=== PATIENT | male | born 1950 | race Caucasian/White ===

== ENCOUNTER 2022-02-04 00:51 | Day surgery (SDC) | payer MEDICARE, OTHER, SELFPAY ==
--- NOTE | 2022-02-01 07:22 | PM.HPGS ---
History of Present Illness History of Present Illness Consent: Risks, benefits, and alternatives have been discussed and questions answered. Patient agrees to proceed with procedure. Chief complaint: BPH Narrative: Mohan James is a 71 year old male who has been a patient in our practice since February 2021. He has longstanding outlet obstructive voiding symptoms that it started to progress despite medical management with tamsulosin. He is also troubled by the side effects of tamsulosin (retrograde ejaculation) and is intolerant of daily sildenafil and tadalafil because of facial flushing. Urodynamics show an obstructed flow pattern. Cystoscopy shows lateral lobe enlargement without a significant median lobe. Transrectal ultrasonography shows a prostate volume of 35.4 cc. We discussed surgical options including TURP, GreenLight laser therapy, Rezum an Urolift. He has elected for the latter. He is aware of the risk including, but not limited to, adverse cardiopulmonary events, postoperative bleeding, persistent irritable and or obstructive voiding symptoms, retrograde ejaculation. Meds Home Medications and Allergies Allergies Allergy/AdvReac Type Severity Reaction Status Date / Time No Known Allergies Allergy Unknown Verified 12/30/09 09:50 Exam Const: General: no acute distress Resp: Effort & Inspection: normal respiratory effort GI: Inspection: non-distended GI Palp: No abdominal tenderness and No Guarding due to palpation present (GI) Auscultation: normal bowel sounds Assessment and Plan Assessment and plan (1) BPH loc w urin obs/LUTS: Code(s): N40.1 - Benign prostatic hyperplasia with lower urinary tract symptoms Status: Acute
[2022-02-02 10:07] VITALS: BMI 34.7
--- NOTE | 2022-02-02 10:12 | PC.NURSE ---
Report to the Outpatient Waiting Room, entrance under the green pavilion located off [facility], at time ___0630____ on date __02/04/22 . OR Time: __30 . Time changes happen often and if your time is changed the preop area will call you the afternoon before. - You and your visitor will be asked to self-screen and do not enter if you have any COVID symptoms. - Only one visitor and NO children visitors are allowed at this time. - The patient visitor is requested to leave or wait in car when not with patient due to restrictions. - A mask is required within the hospital. Patients may have clear liquids (water, carbonated beverages, clear teas, apple juice) until 3 hours prior to surgery (0530 AM) with a maximum of 20 ounces. - No food from midnight until time of surgery - Infants may have breast milk until 4 hours before surgery, formula 6 hours prior to surgery. - Children will be allowed to drink immediately following surgery. If applicable, please bring a bottle or sippy cup to assist with drinking. Juice, water, soda, and popsicles are readily available. For infants on formula, please bring formula the day of surgery. Pacifiers are allowed. Take the following medications with a SIP of water the morning of surgery: _AMLODIPINE,GABAPENTIN, METOPROLOL_ Medications to discontinue per physician _STATES STOPPING COUMADIN 01/30/22 & ASPIRIN 01/28/22_ Date to take last dose Please no make-up, nail iranian, hairspray, perfume, deodorant, or body powder the day of surgery. No jewelry (including any body piercings) or valuables the day of surgery, leave them at home. Please take a shower or bath the night before, or the morning of, surgery with an antibacterial soap. Wear comfortable, loose fitting clothing. Children are encouraged to wear pajamas. - Jewelry must be removed prior to entering the operating room. Rings and piercings that are not removed may be cut off. - The hospital will not accept responsibility for valuables. - Please leave all valuables, including medications, at home the day of surgery. If you are going home after surgery, a licensed passenger coach driver must drive you home. - NO public transportation without another adult. - We recommend that an adult stay with you for 24 hours following discharge. - We also recommend that you do not drive, make important decision, drink alcoholic beverages, or take any drugs that were not prescribed by your health care provider for at least 24 hours after your discharge time. For Pediatric surgeries, we recommend two adults accompany the child home (only one inside the building at this time). Follow any additional instructions given to you from your surgeon. If you or anyone in your household have experienced Covid symptoms in the past week, please notify your surgeon or the nurse liaison at the phone number below for possible testing. Telephone instructions given to ___PT and asked if any additional questions and then verbalized understanding. Patient advised to call surgeon office or pre surgery nurse liaison [phone] if any additional questions.
--- NOTE | 2022-02-04 06:07 | ECG_ITS ---
Measurements Intervals [place] Rate: 59 P: 63 PA: 274 QRS: -52 QRSD: 137 T: 52 QT: 431 QTc: 430 Interpretive Statements SINUS BRADYCARDIA WITH FIRST DEGREE AV BLOCK LEFT AXIS DEVIATION INTRAVENTRICULAR CONDUCTION DELAY ABNORMAL ECG NO PREVIOUS ECG AVAILABLE FOR COMPARISON Electronically Signed On 02-04-2022 8:58:53 CDT by Arnel Vinson D.O.
[2022-02-04] MEDS: LACTATED RINGERS 1,000 ML 30 ML IV CONT (07:00)
--- NOTE | 2022-02-04 07:03 | WPDHPUPDATE1 ---
History and Physical Update Update Date/Time: 02/04/22 07:03 History and Physical has been reviewed, including an updated exam of the patient. There are NO changes in the patient's condition. Risks, benefits, and alternatives have been discussed and questions answered. Patient agrees to proceed with procedure.
[2022-02-04 07:10] LABS: Glucose Point of Care 95 mg/dl (65-105)
[2022-02-04 07:15] LABS: Sodium 128 mmol/L (137-145)
[2022-02-04 07:37] VITALS: BP 150/77; PULSE 62; RESP 20; TEMP 36.9; O2SAT 97
--- NOTE | 2022-02-04 07:41 | WPDANESEPPF ---
Anes - Initial Pre Proc Eval Procedure: Operation Date: 02/04/22 08:30 Proposed Procedures p Urolift - Nils Anderson MD Date/Time: 02/04/22 07:41 Surgeon: Nils Anderson MD Pre Op Diagnosis: BPH Patient Data Age: 71 Gender: M Height: 1.82 m Weight: 115.5 kg Last Vital Signs Temp 36.9 C 02/04/22 07:37 Pulse 62 02/04/22 07:37 Resp 20 02/04/22 07:37 BP 150/77 H 02/04/22 07:37 Pulse Ox 97 02/04/22 07:37 O2 Del Method Room Air 02/04/22 07:37 Allergies Allergy/AdvReac Type Severity Reaction Status Date / Time No Known Allergies Allergy Unknown Verified 02/02/22 09:26 Home Medications Medication Instructions Recorded Confirmed Type amlodipine 5 mg tablet 5 mg QAM 02/02/22 02/04/22 History aspirin 81 mg tablet,delayed 81 mg PO QAM 02/02/22 02/02/22 History release cetirizine 10 mg tablet 10 mg HS 02/02/22 02/04/22 History cholecalciferol (vitamin D3) 50 50 mcg PO QAM 02/02/22 02/04/22 History mcg (2,000 unit) capsule coenzyme Q10 100 mg capsule 200 mg PO QAM 02/02/22 02/04/22 History (CoQ-10) cyanocobalamin (vitamin B-12) 1,000 mcg PO QAM 02/02/22 02/04/22 History 1,000 mcg capsule docusate sodium 100 mg capsule 100 mg PO BID 02/02/22 02/04/22 History (Dulcolax Stool Softener (docusate)) dulaglutide 1.5 mg/0.5 mL 1.5 mg subcut WEEKLY 02/02/22 02/04/22 History subcutaneous pen injector (Trulicity) enalapril maleate 10 mg tablet 10 mg BID 02/02/22 02/04/22 History fenofibrate nanocrystallized 145 145 mg PO QAM 02/02/22 02/04/22 History mg tablet ferrous gluconate 325 mg (36 mg 324 mg PO BID 02/02/22 02/04/22 History iron) tablet flecainide 100 mg tablet 100 mg PO Q12H 02/02/22 02/04/22 History gabapentin 100 mg capsule 100 mg BID 02/02/22 02/04/22 History glipizide 10 mg tablet 5 mg BID 02/02/22 02/04/22 History magnesium 200 mg tablet 400 mg PO BID 02/02/22 02/04/22 History metformin 1,000 mg tablet 1,000 mg BID 02/02/22 02/04/22 History metoprolol tartrate 25 mg tablet 25 mg BID 02/02/22 02/04/22 History omeprazole 20 mg capsule,delayed 20 mg QAM 02/02/22 02/04/22 History release pioglitazone 15 mg tablet (Actos) 15 mg PO QAM 02/02/22 02/04/22 History pitavastatin calcium 1 mg tablet 1 mg HS 02/02/22 02/04/22 History (Livalo) potassium 99 mg tablet 99 mg QAM 02/02/22 02/04/22 History tadalafil 20 mg tablet (Cialis) 20 mg PO DAILY PRN Erectile 02/02/22 02/02/22 History Dysfunction tofacitinib 11 mg tablet,extended 11 mg PO QAM 02/02/22 02/04/22 History release 24 hr (Xeljanz XR) umeclidinium 62.5 mcg-vilanterol 1 inh inhalation QAM 02/02/22 02/04/22 History 25 mcg/actuation powdr for inhalation (Anoro Ellipta) warfarin 5 mg tablet See Rx Instructions .Route .COMPLEX 02/02/22 02/02/22 History Laboratory Tests 02/04/22 02/04/22 07:03 07:05 Sodium 128 mmol/L L mmol/L (137-145) POC Capillary Glucose 95 mg/dl mg/dl (65-105) Patient hx anesthesia problems: none Family hx anesthesia problems: none Results Review: All pre-operative results and documents have been reviewed as part of the pre-operative evaluation. [facility] Past Medical History Medical History (Updated 02/04/22 @ 07:42 by Pradeep Sanderson MD) Diabetes HTN (hypertension) CECELIA (obstructive sleep apnea) Paroxysmal A-fib Social History Social History Smoking packs per day: 1.5 Smoking cigarettes per day: 30.0 Years smoked: 30 Smoking pack-years: 45.00 Smoking status: Former smoker Tobacco type: cigarettes Second hand tobacco smoke exposure: No Smoking end date: 05/23/06 Alcohol intake: current Alcohol use details: 2-3 MONTH Substance use: never Substance use type: does not use Living arrangements: with family Spiritual care concerns: No Anes - Eval Final PreProcedure Day of Procedure 02/04/22 07:41 Patient weight: obese Heart: reg
[2022-02-04] MEDS: ceFAZolin 2 GM/D5W 50 ML 2 GM/50 ML BAG IVPB (08:17)
[2022-02-04] MEDS: LIDOCAINE HCL 2% GEL UROJET 10 ML PKG MUCOUS MEM (08:32)
[2022-02-04 08:42] VITALS: BP 124/60; PULSE 65; RESP 16; O2SAT 100
--- NOTE | 2022-02-04 08:42 | P.OP_ITS ---
Procedure Note - Detailed Date of Procedure 02/04/22 Pre-op Diagnosis BPH Post-op Diagnosis Same Procedure Performed UroLift Surgeon Nils Anderson MD Description of Procedure The patient was prepped and draped in a routine fashion after the uneventful induction of a general LMA anesthetic. A 20F cystoscope was inserted into the bladder. The cystoscopy bridge was replaced with a UroLift delivery device. The first treatment site was the patient's right side approximately 1.5cm distal to the bladder neck. The distal tip of the delivery device was then angled laterally approximately 20 degrees at this position to compress the lateral lobe. The trigger was pulled, thereby deploying a needle containing the implant through the prostate. The needle was then retracted, allowing one end of the implant to be delivered to the capsular surface of the prostate. The implant was then tensioned to assure capsular seating and removal of slack monofilament. The device was then angled back toward midline and slowly advanced proximally (typically 3 to 4 mm) until cystoscopic verification of the monofilament being centered in the delivery bay. The urethral end piece was then affixed to the monofilament thereby tailoring the size of the implant. Excess filament was then severed. The delivery device was then re-advanced into the bladder. The delivery device was then replaced with cystoscope and bridge and the implant location and opening effect was confirmed cystoscopically. The same procedure was then repeated on the left side, and two additional implants were delivered just proximal to the verumontanum, again one on right and one on left side of the prostate, following the same technique. Cystoscopy then revealed a persistent area of obstruction, and two more implants were delivered in the mid- prostate. Therefore, a total of 6 implants were delivered. A final cystoscopy was conducted first to inspect the location and state of each implant and second, to confirm the presence of a continuous anterior channel was present through the prostatic urethra with irrigation flow turned off. The bladder was then filled with 150 cc irrigation fluid to assist the patient in void trial after the procedure, and all instruments were removed. At this point the cystoscope was removed and the patient was taken to the PACU in good condition. Drains No Packing No Pathology None sent Complications No immediate complications Condition Stable Disposition PACU
[2022-02-04 08:56] LABS: Glucose Point of Care 89 mg/dl (65-105)
[2022-02-04 09:00] VITALS: BP 119/93; PULSE 62; RESP 16; O2SAT 100
[2022-02-04 09:20] VITALS: BP 139/69; PULSE 57; RESP 16
== END 2022-02-04 09:32 | disposition home or self-care (01) ==
PROVIDERS: Anesthesiology; PCP Family Medicine; Visit Provider Urology
PROC: 0T7D8DZ Dilation of Urethra with Intraluminal Device, Via Natural or Artificial Opening Endoscopic (ICD-10-PCS; CPT 52441; principal; 2022-02-04 08:30)
DX: N40.1 Benign prostatic hyperplasia with lower urinary tract symptoms (principal); N13.8 Other obstructive and reflux uropathy; I48.0 Paroxysmal atrial fibrillation; I10 Essential (primary) hypertension; E78.00 Pure hypercholesterolemia, unspecified; E11.9 Type 2 diabetes mellitus without complications; K21.9 Gastro-esophageal reflux disease without esophagitis; G47.33 Obstructive sleep apnea (adult) (pediatric); M19.90 Unspecified osteoarthritis, unspecified site; Z79.82 Long term (current) use of aspirin; Z79.899 Other long term (current) drug therapy; Z79.84 Long term (current) use of oral hypoglycemic drugs; Z79.51 Long term (current) use of inhaled steroids; Z79.01 Long term (current) use of anticoagulants; Z87.891 Personal history of nicotine dependence; E66.9 Obesity, unspecified; Z68.35 Body mass index [BMI] 35.0-35.9, adult
CPT/HCPCS: C9740; 36415; 82948; 84295; 93005; A9270; J0690; J2704; J3010; J7120; L8699